=== PATIENT | male | born 1945 | race Caucasian/White ===

== ENCOUNTER → 2024-08-10 17:40 | Outpatient (REF) | payer MEDICARE, SELFPAY | LOC: MRI 17:40 | PROVIDERS: ATTENDING PHYSICIAN Internal Medicine Rheumatology; FAMILY PHYSICIAN Family Medicine | DX: M75.101 Unspecified rotator cuff tear or rupture of right shoulder, not specified as traumatic (principal) | CPT/HCPCS: 73221 ==